=== PATIENT | male | born 1990 | race Caucasian/White ===

== ENCOUNTER 2020-01-08 12:41 | Emergency (ER) | payer SELFPAY ==
[~2020-01-08] VITALS: Ht 190.5 cm; Wt 105.0 kg
[2020-01-08 12:41] VITALS: BP 116/70
[2020-01-08] MEDS ORDERED: SMZ/TMP 800/160MG TABLET. PO ONE (13:00)
[2020-01-08] MEDS ORDERED: SULF1TAB24 PO (13:02)
--- NOTE | 2020-01-08 13:02 | PHYS DOC ---
Adult General Chief Complaint Chief Complaint: HAND PROBLEM HPI HPI Patient is a 29-year-old male who states he has substance abuse as well as mental health issues. He injected methamphetamines yesterday into his left hand and to the dorsum of his penis. He's noticed some redness surrounding the injection site on both his hand and penis. He denies any fever chills or sweats. He states the areas are not painful to touch. He has had no trouble urinating. He states he is motivated to stop using drugs. He is very concerned about the infection because he is currently living with his elderly mother.[] Review of Systems Review of Systems Constitutional: Denies fever or chills [] Eyes: Denies change in visual acuity, redness, or eye pain [] HENT: Denies nasal congestion or sore throat [] Respiratory: Denies cough or shortness of breath [] Cardiovascular: No additional information not addressed in HPI [] GI: Denies abdominal pain, nausea, vomiting, bloody stools or diarrhea [] : Per history of present illness[] Musculoskeletal: Denies back pain or joint pain [] Integument: Per history of present illness[] Neurologic: Denies headache, focal weakness or sensory changes [] Endocrine: Denies polyuria or polydipsia [] All other systems were reviewed and found to be within normal limits, except as documented in this note. Current Medications Current Medications Current Medications Medications (Trade) Dose Ordered Sig/Luis Felipe Start Time Stop Time Status Last Admin Dose Admin Trimethoprim/ Sulfamethoxazole (Bactrim Ds) 1 tab 1X ONCE 01/08/20 13:00 01/08/20 13:01 UNV Physical Exam Physical Exam Constitutional: Well developed, well nourished, no acute distress, extremely anxious. [] HENT: Normocephalic, atraumatic, bilateral external ears normal, oropharynx moist, no oral exudates, nose normal. [] Eyes: PERRLA, EOMI, conjunctiva normal, no discharge. [] Neck: Normal range of motion, no tenderness, supple, no stridor. [] Cardiovascular:Heart rate regular rhythm, no murmur [] Lungs & Thorax: Bilateral breath sounds clear to auscultation [] Abdomen: Bowel sounds normal, soft, no tenderness, no masses, no pulsatile masses. [] Skin: There is a half dollar size on both the dorsum of his left hand as well as dorsal aspect of his penis that has no evidence of abscess or indurated skin. [] Back: No tenderness, no CVA tenderness. [] Extremities: No tenderness, no cyanosis, no clubbing, ROM intact, no edema. [] Neurologic: Alert and oriented X 3, normal motor function, normal sensory fun ction, no focal deficits noted. [] Psychologic: Anxious. [] EKG EKG [] Radiology/Procedures Radiology/Procedures [] Course & Med Decision Making Course & Med Decision Making Pertinent Labs and Imaging studies reviewed. (See chart for details) [ED course: Evaluation reveals a 29-year-old male with early cellulitis on his left hand and penis. He also has considerable problems with substance abuse. He was given Bactrim DS 1 by mouth in the emergency department and I called in and paid for a prescription for Bactrim to take as an outpatient.] Dragon Disclaimer Dragon Disclaimer This electronic medical record was generated, in whole or in part, using a voice recognition dictation system. Departure Departure Impression: Primary Impression: Cellulitis of penis Additional Impressions: Cellulitis of left hand Substance abuse Disposition: HOME, SELF-CARE Condition: STABLE Referrals: NON,STAFF (PCP) Patient Instructions: Amphetamine Abuse, Cellulitis, Substance Abuse-Brief Additional Instructions: Return to the emergency department with any new or concerning symptoms Scripts Sulfamethoxazole/Trimethoprim (BACTRIM DS TABLET) 1 Each Tablet 1 TAB PO BID for 10 Days, #20 TAB Prov: TUNDE LUA DO 01/08/20 Problem Qualifiers TUNDE LUA DO Jan 08, 2020 13:02
== END 2020-01-08 13:20 | disposition home or self-care (01) ==
LOC: ER 12:41
DX: N48.22 Cellulitis of corpus cavernosum and penis (principal); L03.114 Cellulitis of left upper limb; F15.10 Other stimulant abuse, uncomplicated
CPT/HCPCS: 99283